=== PATIENT | male | born 1955 | race Caucasian/White ===

== ENCOUNTER → 2024-10-16 09:44 | Outpatient (REF) | payer MEDICARE, OTHER, SELFPAY | LOC: HWRAD 09:44 | PROVIDERS: ATTENDING PHYSICIAN Internal Medicine Gastroenterology; FAMILY PHYSICIAN Internal Medicine | DX: K70.31 Alcoholic cirrhosis of liver with ascites (principal) | CPT/HCPCS: 76700 ==

== ENCOUNTER 2024-10-19 06:27 | Day surgery (SDC) | payer MEDICARE, OTHER, SELFPAY ==
[2024-10-19 10:05] VITALS: BMI 34.8
[2024-10-19 10:10] VITALS: BP 147/83
[2024-10-19 12:02] VITALS: BP 118/76
[2024-10-19 12:15] VITALS: BP 125/66
[2024-10-19 12:30] VITALS: BP 133/77
== END 2024-10-19 12:33 | disposition home or self-care (01) ==
LOC: SDS 06:27
PROVIDERS: ATTENDING PHYSICIAN Internal Medicine Gastroenterology
DX: I85.00 Esophageal varices without bleeding (principal); K76.6 Portal hypertension
CPT/HCPCS: 43235